=== PATIENT | male | born 1985 | race Caucasian/White ===

== ENCOUNTER 2018-03-05 09:45 | Emergency (ER) | payer MEDICAID ==
[~2018-03-05] VITALS: Ht 188 cm; Wt 102.3 kg
[2018-03-05] MEDS ORDERED: LIDO20SO16 PO (10:38)
[2018-03-05] MEDS ORDERED: IBUP-1984 PO (10:39)
[2018-03-05 10:47] VITALS: BP 143/88
[2018-03-06] MEDS ORDERED: AMOX-422 PO (19:21)
== END 2018-03-05 10:49 | disposition home or self-care (01) ==
LOC: ER 09:45
DX: J02.9 Acute pharyngitis, unspecified (principal); J35.1 Hypertrophy of tonsils; Z79.1 Long term (current) use of non-steroidal anti-inflammatories (NSAID); Z72.0 Tobacco use
CPT/HCPCS: 87081; 87880; 99284